=== PATIENT | female | born 1985 | race Caucasian/White ===

== ENCOUNTER 2016-08-31 22:30 | Emergency (ER) | payer MEDICAID, OTHER ==
[~2016-08-31] VITALS: Ht 172.7 cm; Wt 72.6 kg
[2016-08-31] MEDS ORDERED: FAMOTIDINE (20 MG) 20 MG TABLET ONE (23:37)
[2016-08-31 23:54] VITALS: BP 119/66
[2016-09-01] MEDS ORDERED: FAMOTIDINE (20 MG) 20 MG TABLET PO ONE
== END 2016-08-31 23:55 | disposition home or self-care (01) ==
LOC: ER 22:34
DX: O26.891 Other specified pregnancy related conditions, first trimester (principal); T78.3XXA Angioneurotic edema, initial encounter; Z3A.09 9 weeks gestation of pregnancy; X58.XXXA Exposure to other specified factors, initial encounter; Y92.89 Other specified places as the place of occurrence of the external cause; Y93.89 Activity, other specified; Y99.8 Other external cause status
CPT/HCPCS: A4606; Z7610